=== PATIENT | male | born 1985 | race Caucasian/White ===

== ENCOUNTER 2023-06-02 16:25 | Emergency (ER) | payer BC, SELFPAY ==
[2023-06-02 16:30] VITALS: BP 143/64; PULSE 65; RESP 20; TEMP 36.6; O2SAT 100
[2023-06-02 17:14] LABS: Influenza A QL RT-PCR Positive (Negative); Influenza B QL RT-PCR Negative (Negative); RSV RNA, RT-PCR Negative (Negative); SARS-CoV-2 RNA PCR Negative (Negative)
[2023-06-02 17:36] VITALS: O2SAT 100
--- NOTE | 2023-06-02 17:50 | ED.URI ---
HPI - URI/Sore Throat General Chief Complaint: Upper Respiratory Infection Stated Complaint: cough Time Seen by Provider: 06/02/23 17:31 Source: patient Limitations: no limitations History of Present Illness HPI Narrative: patient is a 38-year-old male presents to the emergency department complaining cough, fatigue, body aches, nasal congestion. Patient states this been ongoing for the past 2 days. Patient states his cough is mostly dry, there is slight yellow sputum production and he noticed some tinges of blood over the past couple hours as well with the sputum. Patient denies chest pain, difficulty breathing, recent injuries, diarrhea, vomiting, nausea, abdominal pain, urinary discomfort, use of blood thinners. Patient denies taking medications for symptoms. Patient admits to getting both COVID and flu vaccinations. Patient admits to sick contacts as mom and brother with similar symptoms. Patient denies any ear pain, difficulty swallowing. Related Data Allergies Allergy/AdvReac Type Severity Reaction Status Date / Time tree nut Allergy Unknown Verified 06/02/23 17:35 Review of Systems Review of Systems: A 10 system review of systems was completed on the patient and is negative except for what is stated in the HPI. Nursing and ancillary documentation was reviewed. PMFSH Comments At time of signature, I have reviewed and agree with nursing past medical, surgical, social and family history unless otherwise noted. Please see the nursing chart for further information. There is no relevant family history pertinent to the presenting complaint. Exam Narrative: CONST: No acute distress. Well nourished. HENMT: Head is normocephalic and atraumatic. Moist mucous membranes. No posterior oropharynx erythema. EYES: No conjunctival icterus, injection, or pallor. PERRL. NECK: No meningeal signs. No palpable cervical lymphadenopathy. RESP: Able to speak in full sentences. Normal respiratory effort. CTAB. CARDIO: Regular rate. Regular rhythm. 2+ DP and radial pulses bilaterally. GI: Nondistended. No tenderness to palpation. Soft. : No CVA tenderness to palpation. SKIN: No rashes or lesions noted on exposed skin. NEURO: Oriented x3. Moves all extremities. EXTREM/MSK/BACK: No pedal edema. PSYCH: Normal affect. Course Vital Signs Vital signs: Vital Signs Temperature 97.8 F 06/02/23 16:30 Pulse Rate 65 06/02/23 16:30 Respiratory Rate 20 06/02/23 16:30 Blood Pressure 143/64 H 06/02/23 16:30 Pulse Oximetry 100 06/02/23 16:30 Oxygen Delivery Room Air 06/02/23 16:30 Temperature 97.8 F 06/02/23 16:30 Pulse Rate 65 06/02/23 16:30 Respiratory Rate 20 06/02/23 16:30 Blood Pressure 143/64 H 06/02/23 16:30 Pulse Oximetry 100 06/02/23 17:36 Oxygen Delivery Room Air 06/02/23 17:36 MDM - URI/Sore Throat MDM Narrative Medical decision making narrative: Patient presents with the above complaint. Initial vitals are remarkable for no significant abnormalities. Physical examination as noted above. Plan discussed: COVID/flu/ RSV nasopharyngeal PCR testing. Patient was reassessed at the bedside. No changes in physical exam. Patient is in no acute distress. The patient has remained stable throughout the entire ED visit. Counseled patient regarding diagnostic results and potential diagnosis. Anticipatory guidance provided. Patient instructed to follow up with PCP within 1 week. Patient counseled on: false reassurance from an emergency department evaluation; no current evidence of a medical emergency; return immediately for any new, recurrent, worsening, concerning, or refractory symptoms. Patient prescribed Tamiflu. Prescription sent to preferred pharmacy. Medications discussed with patient. Additional verbal and printed discharge instructions were given and discussed with the patient. Patient verbally acknowledges understanding of condition and discharge instructions. All questi
[2023-06-02] MEDS: OSELTAMIVIR PHOSPHATE 75 MG CAPSULE PO (18:05)
[2023-06-02] MEDS: BENZONATATE 100 MG CAPSULE 200 MG PO (18:05)
== END 2023-06-02 18:10 | disposition home or self-care (01) ==
LOC: ANHED 17:58
PROVIDERS: Emergency Medicine; Emergency Provider Student in an Organized Health Care Education/Training Program
DX: J11.1 Influenza due to unidentified influenza virus with other respiratory manifestations (principal); Z20.822 Contact with and (suspected) exposure to COVID-19
CPT/HCPCS: 87637; 99283; A9270